=== PATIENT | male | born 1925 | race Caucasian/White ===

== ENCOUNTER 2016-08-17 12:56 | Outpatient (CLI) | payer OTHER ==
[~2016-08-17 12:56] MED LIST: ALDACTONE25 MG PO; ALPHAGAN P0.1 %; AMLODIPINE BES2.5 MG PO; ASPIRIN325 MG PO; CARVEDILOL6.25 MG PO; FUROSEMIDE40 MG PO; ISOSORBIDE DINI10 MG PO; LEVAQUIN500 MG PO; LISINOPRIL10 MG PO; MIRALAX3350 N1 PO; MULTIPLE VITAMIN PO; NITROSTAT0.4 MG SL; NORCO1 TA1 PO; SM HYDROCORTISO0.51 TOP; VITAMIN D-31000 UNIT PO; XALATAN0.005 % OP
--- NOTE | 2016-08-18 10:49 | DIAGNOSTIC IMAGING REPORT ---
PROCEDURE: 2-D M-mode echo Doppler CLINICAL INDICATION: AI, CHF TECHNIQUE: Standard technique COMPARISON: None available FINDINGS: The aortic valve exhibits sclerosis but no stenosis A mild degree of aortic insufficiency is detected. The mitral valve exhibits trace MR the tricuspid valve is normal with RVSP is normal and 20. Pulmonic valve is normal. Mild left atrial enlargement is present right atrium is normal RV dimension is normal RV function is normal with normal RV systolic pressure 20. Mild concentric LVH present with an ejection fraction of 50-55%. Contraction is normal. The ascending aorta is mildly dilated measuring 3.9 cm no abnormalities of the pericardium are appreciated. IMPRESSION: Mild aortic insufficiency Normal right heart pressures LVH Left atrial enlargement Ventricular ejection fraction 50 -55% with normal contraction Mild dilation ascending aorta and 3.9 cm
== END 2016-08-17 23:00 ==
LOC: US SRH 12:56
DX: I51.7 Cardiomegaly (principal)